=== PATIENT | male | born 1960 | race Caucasian/White ===

== ENCOUNTER 2020-09-30 00:53 | Inpatient (IN) | payer OTHER ==
[2020-09-30] VITALS (8 sets, daily range): BP systolic 95–132; BP diastolic 60–83
[~2020-09-30] VITALS: Ht 175.3 cm; Wt 116.4 kg
--- NOTE | 2020-09-30 01:11 | NUR ---
Pt arrives via medics with IV from previous facility, states he was given "2 shots of blood thinner in stomach".
--- NOTE | 2020-09-30 01:13 | NUR ---
received report from JANICE Streeter
[2020-09-30] MEDS ORDERED: HYDR25TA6 PO (01:16)
[2020-09-30] MEDS ORDERED: VALS80TA3 PO (01:16)
[2020-09-30] MEDS ORDERED: ATOR20TA37 PO (01:16)
[2020-09-30] MEDS ORDERED: PANT40TA6 PO (01:21)
[2020-09-30] MEDS ORDERED: LOSA25TA25 PO (01:21)
[2020-09-30] MEDS ORDERED: NAPR-685 PO (01:21)
[2020-09-30] MEDS ORDERED: LEVO25TA4 PO (01:21)
--- NOTE | 2020-09-30 01:26 | NUR ---
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
[2020-09-30] MEDS ORDERED: SODIUM CHLORIDE 0.9% 1,000ML IVBOLUS ONE (01:30)
[2020-09-30] MEDS ORDERED: SODIUM CHLORIDE FLUSH 10ML SYR IVF ONE (01:30)
[2020-09-30 01:35] LABS: BASOPHILS % (AUTO) 0 % (0-1); EOSINOPHILS % (AUTO) 1 % (1-7); LYMPHOCYTES % (AUTO) 14 % (22-44); MEAN CORPUSCULAR HEMOGLOBIN 30.1 pg (27.5-34.5); MEAN CORPUSCULAR HGB CONC 33.2 g/dL (33.2-36.2); MEAN PLATELET VOLUME 9.2 fL (7.4-10.4); MONOCYTES % (AUTO) 6 % (2-9); NEUTROPHILS % (AUTO) 79 % (42-75); PLATELET COUNT 259 x10^3/uL (130-400); RED BLOOD COUNT 5.39 x10^6/uL (4.38-5.82); RED CELL DISTRIBUTION WIDTH 14.2 % (9.4-14.8)
--- NOTE | 2020-09-30 01:44 | NUR ---
EKG , X ray done. awaiting results. IVF hung.
[2020-09-30 01:49] LABS: ALBUMIN 3.9 g/dL (3.4-5.0); ANION GAP 6 mmol/L (5-15); CALCIUM 9.1 mg/dL (8.5-10.1); CHLORIDE 107 mmol/L (98-107); CREATININE 1.13 mg/dL (0.7-1.3)
[2020-09-30 01:55] LABS: TROPONIN I 0.878 ng/mL (0.000-0.045)
[2020-09-30 01:56] LABS: INTERNATIONAL NORMALIZED RATIO 1.03 (0.93-1.1)
--- NOTE | 2020-09-30 02:54 | NUR ---
patient sleeping, respiration unlabored.
--- NOTE | 2020-09-30 03:21 | NUR ---
report to JANICE Stevens
[2020-09-30] MEDS ORDERED: NITROGLYCERIN 0.4 MG/SPRAY SL PRN (03:30)
[2020-09-30] MEDS ORDERED: MELATONIN 5 MG TABLET PO PRN (03:30)
[2020-09-30] MEDS ORDERED: ONDANSETRON 2MG/ML, 2ML IVPush PRN (03:30)
[2020-09-30] MEDS ORDERED: HEPARIN 25,000 UNITS/250ML PMX 250 ML IV PRN ×2 (03:30→11:00)
[2020-09-30] MEDS ORDERED: HEPARIN 5,000 UNITS/ML, 1ML IV PRN ×2 (03:30→11:00)
[2020-09-30] MEDS ORDERED: POLYETHYLENE GLYCOL 17 GM PACKET PO PRN (03:30)
[2020-09-30] MEDS ORDERED: HEPARIN 5,000 UNITS/ML, 1ML IV ONE ×2 (03:30→11:00)
[2020-09-30] MEDS ORDERED: LABETALOL 5MG/ML, 20ML IVPush PRN (03:30)
[2020-09-30 03:59] LABS: BASOPHILS % (AUTO) 1 % (0-1); EOSINOPHILS % (AUTO) 1 % (1-7); LYMPHOCYTES % (AUTO) 11 % (22-44); MEAN CORPUSCULAR HEMOGLOBIN 31.2 pg (27.5-34.5); MEAN CORPUSCULAR HGB CONC 34.6 g/dL (33.2-36.2); MONOCYTES % (AUTO) 8 % (2-9); NEUTROPHILS % (AUTO) 81 % (42-75); PLATELET COUNT 270 x10^3/uL (130-400); RED BLOOD COUNT 5.03 x10^6/uL (4.38-5.82)
[2020-09-30 04:12] LABS: ALANINE AMINOTRANSFERASE 87 U/L (12-78); ALBUMIN 3.6 g/dL (3.4-5.0); ANION GAP 7 mmol/L (5-15); CALCIUM 8.7 mg/dL (8.5-10.1); CHLORIDE 108 mmol/L (98-107); CREATININE 1.01 mg/dL (0.7-1.3)
[2020-09-30 04:18] LABS: ALKALINE PHOSPHATASE 57 U/L (45-117); BILIRUBIN,TOTAL 0.8 mg/dL (0.2-1.0)
[2020-09-30] MEDS: SODIUM CHLORIDE 0.9% 1,000 ML IV SCH ×3 (06:00→17:00)
[2020-09-30] MEDS: CARVEDILOL 3.125 MG TABLET PO SCH ×2 (06:25→17:16)
[2020-09-30] MEDS: ASPIRIN 81 MG TABLET CHEW PO SCH (09:12)
[2020-09-30] MEDS: LEVOTHYROXINE 25 MCG TABLET PO SCH (09:12)
[2020-09-30] MEDS: LISINOPRIL 5 MG TABLET PO SCH (09:13)
[2020-09-30] MEDS ORDERED: DIPHENHYDRAMINE 50 MG/ML, 1ML IVPush ONE (10:00)
[2020-09-30] MEDS ORDERED: DIPHENHYDRAMINE 50 MG/ML, 1ML ONE (14:29)
[2020-09-30] MEDS ORDERED: LIDOCAINE-MPF 1%, 5ML ONE (15:49)
[2020-09-30] MEDS ORDERED: FENTANYL PF 100 MCG/2ML ONE (15:49)
[2020-09-30] MEDS ORDERED: MIDAZOLAM 1 MG/ML, 2ML ONE (15:49)
[2020-09-30] MEDS ORDERED: VERAPAMIL 2.5 MG/ML, 2ML ONE (15:49)
[2020-09-30] MEDS ORDERED: HEPARIN 1,000 UNITS/ML, 10ML ONE (15:49)
[2020-09-30] MEDS ORDERED: TICAGRELOR 90 MG TABLET PO ONE (17:30)
[2020-09-30] MEDS: ATORVASTATIN 40 MG TABLET PO SCH (20:18)
[2020-10-01 01:01] VITALS: BP 128/79
[2020-10-01] MEDS: SODIUM CHLORIDE 0.9% 1,000 ML IV SCH ×3 (01:12→08:43)
[2020-10-01 06:07] LABS: BASOPHILS % (AUTO) 1 % (0-1); EOSINOPHILS % (AUTO) 2 % (1-7); LYMPHOCYTES % (AUTO) 20 % (22-44); MEAN CORPUSCULAR HEMOGLOBIN 30.6 pg (27.5-34.5); MEAN CORPUSCULAR HGB CONC 33.6 g/dL (33.2-36.2); MEAN PLATELET VOLUME 8.8 fL (7.4-10.4); MONOCYTES % (AUTO) 11 % (2-9); NEUTROPHILS % (AUTO) 66 % (42-75); PLATELET COUNT 223 x10^3/uL (130-400); RED BLOOD COUNT 4.69 x10^6/uL (4.38-5.82); RED CELL DISTRIBUTION WIDTH 13.7 % (9.4-14.8)
[2020-10-01 06:23] LABS: ANION GAP 5 mmol/L (5-15); CALCIUM 8.2 mg/dL (8.5-10.1); CHLORIDE 112 mmol/L (98-107); CREATININE 1.01 mg/dL (0.7-1.3)
[2020-10-01 06:53] VITALS: BP 112/74
[2020-10-01 08:42] VITALS: BP 119/72
[2020-10-01] MEDS: ASPIRIN 81 MG TABLET CHEW PO SCH (08:42)
[2020-10-01] MEDS: LEVOTHYROXINE 25 MCG TABLET PO SCH (08:43)
[2020-10-01] MEDS: CARVEDILOL 3.125 MG TABLET PO SCH ×2 (08:43→17:30)
[2020-10-01] MEDS: TICAGRELOR 90 MG TABLET PO SCH ×2 (08:43→20:20)
[2020-10-01] MEDS: LISINOPRIL 5 MG TABLET PO SCH (08:43)
[2020-10-01] MEDS ORDERED: TICAGRELOR 90 MG TABLET PO SCH (09:00)
[2020-10-01] MEDS ORDERED: MAALOX/HYOSCYAMINE/LIDOCAINE 45 ML BTL PO ONE (10:00)
[2020-10-01 12:38] VITALS: BP 98/60
[2020-10-01] MEDS ORDERED: MAALOX/HYOSCYAMINE/LIDOCAINE 45 ML BTL PO PRN (15:00)
[2020-10-01] MEDS ORDERED: CALCIUM CARBONATE 500 MG TAB.CHEW PO PRN (15:00)
[2020-10-01] MEDS ORDERED: METHOCARBAMOL 750 MG TABLET PO PRN (15:00)
[2020-10-01 17:29] VITALS: BP 123/73
[2020-10-01 18:38] VITALS: BP 102/64
[2020-10-01] MEDS: PANTOPRAZOLE 40MG TABLET PO SCH (18:40)
[2020-10-01] MEDS: ATORVASTATIN 40 MG TABLET PO SCH (20:20)
[2020-10-02] VITALS (7 sets, daily range): BP systolic 99–119; BP diastolic 58–74
[2020-10-02] MEDS: PANTOPRAZOLE 40MG TABLET PO SCH (05:22)
[2020-10-02] MEDS: CARVEDILOL 3.125 MG TABLET PO SCH ×2 (08:09→18:05)
[2020-10-02] MEDS: LISINOPRIL 5 MG TABLET PO SCH (08:09)
[2020-10-02] MEDS: TICAGRELOR 90 MG TABLET PO SCH ×2 (08:09→21:11)
[2020-10-02] MEDS: ASPIRIN 81 MG TABLET CHEW PO SCH (08:09)
[2020-10-02] MEDS: LEVOTHYROXINE 25 MCG TABLET PO SCH (08:10)
[2020-10-02] MEDS: SODIUM CHLORIDE 0.9% 1,000 ML IV SCH ×2 (11:54→21:30)
[2020-10-02] MEDS ORDERED: PLEASE ENTER ALLERGIES MC SCH (12:00)
[2020-10-02] MEDS ORDERED: FENTANYL PF 100 MCG/2ML ONE (12:51)
[2020-10-02] MEDS ORDERED: VERAPAMIL 2.5 MG/ML, 2ML ONE (12:51)
[2020-10-02] MEDS ORDERED: MIDAZOLAM 1 MG/ML, 5ML ONE (12:51)
[2020-10-02] MEDS ORDERED: TICAGRELOR 90 MG TABLET ONE (12:51)
[2020-10-02] MEDS ORDERED: HEPARIN 1,000 UNITS/ML, 10ML ONE (12:52)
[2020-10-02] MEDS ORDERED: LIDOCAINE-MPF 1%, 5ML ONE (12:52)
[2020-10-02] MEDS ORDERED: BIVALIRUDIN 250 MG ONE ×2 (12:52→14:09)
[2020-10-02] MEDS ORDERED: SODIUM CHLORIDE 0.9% 1,000 ML IV SCH (14:30)
[2020-10-02] MEDS: ISOSORBIDE MONONITRATE ER 30 MG TABLET PO SCH (14:57)
[2020-10-02] MEDS: ATORVASTATIN 40 MG TABLET PO SCH (21:11)
[2020-10-03 02:38] VITALS: BP 107/66
[2020-10-03 05:32] LABS: ALBUMIN 3.2 g/dL (3.4-5.0); ANION GAP 6 mmol/L (5-15); CALCIUM 8.4 mg/dL (8.5-10.1); CHLORIDE 111 mmol/L (98-107)
[2020-10-03 05:35] LABS: ALANINE AMINOTRANSFERASE 80 U/L (12-78); ALKALINE PHOSPHATASE 44 U/L (45-117); BILIRUBIN,TOTAL 0.9 mg/dL (0.2-1.0); TOTAL PROTEIN 6.2 g/dL (6.4-8.2)
[2020-10-03 07:09] VITALS: BP 115/72
[2020-10-03] MEDS: SODIUM CHLORIDE 0.9% 1,000 ML IV SCH (07:30)
[2020-10-03] MEDS: LEVOTHYROXINE 25 MCG TABLET PO SCH (09:00)
[2020-10-03] MEDS ORDERED: LOSARTAN 25MG TABLET PO SCH (09:00)
[2020-10-03] MEDS: CARVEDILOL 3.125 MG TABLET PO SCH (09:00)
[2020-10-03] MEDS: ISOSORBIDE MONONITRATE ER 30 MG TABLET PO SCH (09:00)
[2020-10-03] MEDS: ASPIRIN 81 MG TABLET CHEW PO SCH (09:00)
[2020-10-03] MEDS: TICAGRELOR 90 MG TABLET PO SCH (09:00)
[2020-10-03] MEDS: PANTOPRAZOLE 40MG TABLET PO SCH (09:01)
[2020-10-03] MEDS ORDERED: ATOR40TA78 PO (09:08)
[2020-10-03] MEDS ORDERED: ASPI-963 PO (09:08)
[2020-10-03] MEDS ORDERED: TICA90TA PO (09:08)
[2020-10-03] MEDS ORDERED: ISOS30TA8 PO (09:08)
[2020-10-03] MEDS ORDERED: CARV3.1212 PO (09:08)
== END 2020-10-03 10:22 | disposition home or self-care (01) | DRG 247 ==
LOC: ED 01:38 → EDIP 02:28 → 5SO 03:33 → DCLOUNGE 10-03 10:15
PROVIDERS: ADMIT Internal Medicine; ATTEND Internal Medicine
PROC: 4A023N7 Measurement of Cardiac Sampling and Pressure, Left Heart, Percutaneous Approach (ICD-10-PCS; 2020-09-30)
PROC: B2151ZZ Fluoroscopy of Left Heart using Low Osmolar Contrast (ICD-10-PCS; 2020-09-30)
PROC: B2111ZZ Fluoroscopy of Multiple Coronary Arteries using Low Osmolar Contrast (ICD-10-PCS; 2020-09-30)
PROC: 027034Z Dilation of Coronary Artery, One Artery with Drug-eluting Intraluminal Device, Percutaneous Approach (ICD-10-PCS; principal; 2020-10-02)
DX: I21.4 Non-ST elevation (NSTEMI) myocardial infarction (principal); I25.10 Atherosclerotic heart disease of native coronary artery without angina pectoris; E03.9 Hypothyroidism, unspecified; E78.5 Hyperlipidemia, unspecified; E66.9 Obesity, unspecified; Z68.37 Body mass index [BMI] 37.0-37.9, adult; F17.200 Nicotine dependence, unspecified, uncomplicated; I10 Essential (primary) hypertension; K21.9 Gastro-esophageal reflux disease without esophagitis; R73.03 Prediabetes; Z82.49 Family history of ischemic heart disease and other diseases of the circulatory system; Z95.5 Presence of coronary angioplasty implant and graft; M19.90 Unspecified osteoarthritis, unspecified site; R79.89 Other specified abnormal findings of blood chemistry; Z71.6 Tobacco abuse counseling
CPT/HCPCS: 36415; 71045; 80048; 80053; 82040; 83735; 84484; 85025; 85520; 85610; 85730; 93005; 93306; 93458; 96361; 96374; 99156; 99157; 99285; C1760; C1769; C1894; C9600; G0378; J0583; J1644; J2250; J3010; C1725; C1874; C1887; J1200; J7030; Q9967